=== PATIENT | male | born 1955 | race Caucasian/White ===

== ENCOUNTER 2017-11-30 16:53 | Emergency (ER) | payer SELFPAY ==
[2017-11-30 17:52] VITALS: BP 158/92
--- NOTE | 2017-11-30 22:55 | Emergency Department Report ---
Suture/Staple Removal - [facility] Chief Complaint: Laceration/Recheck/Suture Stated Complaint: OTIS REMOVED Time Seen by Provider: 11/30/17 22:25 Wound Location: patient is a 62-year-old male presents for staple removal ED Review of Systems ROS: Stated complaint: OTIS REMOVED Other details as noted in HPI Constitutional: denies: chills, fever Eyes: denies: eye pain, eye discharge, vision change ENT: denies: ear pain, throat pain Respiratory: denies: cough, shortness of breath, wheezing Cardiovascular: denies: chest pain, palpitations Endocrine: no symptoms reported Gastrointestinal: denies: abdominal pain, nausea, diarrhea Genitourinary: denies: urgency, dysuria Musculoskeletal: denies: back pain, joint swelling, arthralgia Skin: other (surgical site umbilical , and abd. ) Neurological: denies: headache, weakness, paresthesias Psychiatric: denies: anxiety, depression Hematological/Lymphatic: denies: easy bleeding, easy bruising ED Past Medical Hx - Social History Smoking Status: Never Smoker Substance Use Type: None - Medications Home Medications: Home Medications Medication Instructions Recorded Confirmed Last Taken Type Mupirocin [Bactroban 2% OINT] 1 applic TP TID 7 Days #1 tube 11/30/17 Unknown Rx Suture Removal Exam - Exam General: Vital signs noted. No distress. Alert and acting appropriately. Wound: No Pathologic Erythema, No Tenderness, No Drainage, No Pus, No Wound Dehiscence Other Systems: All other systems reviewed and are unremarkable. Wound edges well approximated and no drainage no erythema no pain otis intact 16 same removed at this time ED Course Vital Signs 11/30/17 17:48 Temperature 100.2 F H Pulse Rate 60 Respiratory 18 Rate Blood Pressure 158/92 O2 Sat by Pulse 96 Oximetry - Procedure Description Procedures done: staple removal abd x 15 intact no symptoms of infection edges well approximated no drainage mild erythema no pain fever , otis removed wtih stable remover, ED Recheck MDM - Differential Diagnosis Wound Recheck - Medical Decision Making [place] removed intact no symptoms of infection no drainage no fever mild erythema that was removed intact 15 patient will follow-up with Gen Surgery as scheduled Dr. Yanez in 2-3 days . there is no fever no chills pt it tolerating po intake with out n/v voiding and bm without difficulty or concern. Critical care attestation.: If time is entered above; I have spent that time in minutes in the direct care of this critically ill patient, excluding procedure time. ED Disposition Clinical Impression: Removal of otis Disposition: TO HOME OR SELFCARE Is pt being admited?: No Does the pt Need Aspirin: No Condition: Good Instructions: Staple Care (ED) Prescriptions: Mupirocin [Bactroban 2% OINT] 1 applic TP TID 7 Days #1 tube Forms: Work/School Release Form(ED) Time of Disposition: 23:00
== END 2017-11-30 23:08 | disposition home or self-care (01) ==
LOC: ED 16:53
DX: S31.115D Laceration without foreign body of abdominal wall, periumbilic region without penetration into peritoneal cavity, subsequent encounter (principal); X58.XXXD Exposure to other specified factors, subsequent encounter